=== PATIENT | female | born 1965 | race Two or more races ===

== ENCOUNTER 2023-01-27 07:53 | Day surgery (SDC) | payer OTHER | END 2023-01-27 15:15 | disposition home or self-care (01) | LOC: AMB-ENDOS 07:53 → CIR.AMB 09:30 → AMB-ENDOS 15:15 | PROVIDERS: ATTEND Colon & Rectal Surgery | DX: K63.5 Polyp of colon (principal); K57.30 Diverticulosis of large intestine without perforation or abscess without bleeding; K64.8 Other hemorrhoids; R19.4 Change in bowel habit; Z88.6 Allergy status to analgesic agent; Z20.822 Contact with and (suspected) exposure to COVID-19 ==